=== PATIENT | female | born 1965 | race African-American/Black ===

== ENCOUNTER 2022-04-05 14:38 | Emergency (ER) | payer OTHER ==
[2022-04-05 15:10] VITALS: BP 149/86; PULSE 102; RESP 18; TEMP 98.4; BMI 37.4
[2022-04-05] MEDS ORDERED: IBUPROFEN 600 MG TABLET (FP) PO ONE (16:44)
[2022-04-05] MEDS ORDERED: ACETAMINOPHEN 325 MG TABLET (FP) PO ONE (16:52)
== END 2022-04-05 18:33 | disposition home or self-care (01) ==
LOC: JER 14:38
DX: U07.1 COVID-19 (principal)
CPT/HCPCS: 0241U-QW; 71046-TC-FY; 99284-25

== ENCOUNTER 2023-10-06 22:41 | Emergency (ER) | payer OTHER ==
[2023-10-06 22:49] VITALS: BP 116/80; PULSE 74; RESP 18; TEMP 97.5; BMI 42.0
[2023-10-06] MEDS ORDERED: ACETAMINOPHEN 325 MG TABLET (FP) ONE (23:39)
[2023-10-06] MEDS ORDERED: KETOROLAC TROMETHAMINE 15 MG/ML VIAL ONE (23:39)
[2023-10-06] MEDS ORDERED: LIDOCAINE 4% PATCH TP ONE (23:39)
[2023-10-06] MEDS: LIDOCAINE 4% PATCH TP ONE (23:52)
[2023-10-06] MEDS: ACETAMINOPHEN 325 MG TABLET (FP) PO ONE (23:52)
[2023-10-06] MEDS: KETOROLAC TROMETHAMINE 15 MG/ML VIAL IM ONE (23:52)
[2023-10-07] MEDS ORDERED: CYCLOBENZAPRINE HCL 5 MG TABLET PO SCH (10:00)
== END 2023-10-07 01:03 | disposition home or self-care (01) ==
LOC: JER 22:41
PROC: 3E0233Z Introduction of Anti-inflammatory into Muscle, Percutaneous Approach (ICD-10-PCS; principal; 2023-10-06)
DX: M54.50 Low back pain, unspecified (principal)
CPT/HCPCS: 99284-25

== ENCOUNTER 2024-02-27 23:18 | Emergency (ER) | payer OTHER ==
[2024-02-27 23:31] VITALS: BP 150/100; PULSE 74; RESP 16; TEMP 98.1; BMI 40.2
[2024-02-28] MEDS ORDERED: KETOROLAC TROMETHAMINE 60 MG/2 ML VIAL ONE (00:13)
[2024-02-28] MEDS: KETOROLAC TROMETHAMINE 60 MG/2 ML VIAL IM ONE (00:18)
== END 2024-02-28 00:26 | disposition home or self-care (01) ==
LOC: FER 23:18
PROC: 3E0233Z Introduction of Anti-inflammatory into Muscle, Percutaneous Approach (ICD-10-PCS; principal; 2024-02-27)
DX: R51.9 Headache, unspecified (principal); B34.9 Viral infection, unspecified; M79.10 Myalgia, unspecified site; R50.9 Fever, unspecified; R53.83 Other fatigue; Z20.822 Contact with and (suspected) exposure to COVID-19
CPT/HCPCS: 0241U-QW; 99284-25

== ENCOUNTER 2024-09-01 14:05 | Emergency (ER) | payer OTHER ==
[2024-09-01 14:23] VITALS: BP 146/88; PULSE 69; RESP 18; TEMP 98.4; BMI 40.2
== END 2024-09-01 15:23 | disposition home or self-care (01) ==
LOC: FER 14:05
DX: J40 Bronchitis, not specified as acute or chronic (principal); R05.9 Cough, unspecified
CPT/HCPCS: 71046-TC-FY; 99283-25